=== PATIENT | female | born 1940 | race Caucasian/White ===

== ENCOUNTER 2023-10-19 19:42 | Emergency (ER) | payer MEDICARE, OTHER, SELFPAY ==
[2023-10-19 19:44] VITALS: BP 168/114
[2023-10-19 20:18] LABS: % Basophils 0.5 % (0-2); % Eosinophils 1.2 % (0-6); % Immature Granulocytes 0.3 % (0-0.5); % Lymphocytes 22.5 % (20.5-51.1); % Monocytes 8.3 % (1.7-9.3); % Neutrophils 67.2 % (42.2-75.2); Absolute Basophils 0.1 10^3/uL (0-0.2); Absolute Eosinophils 0.1 10^3/uL (0-0.7); Absolute Lymphocytes 2.5 10^3/uL (1.2-3.4); Absolute Monocytes 0.9 10^3/uL (0.1-0.6); Absolute Neutrophils 7.6 10^3/uL (1.4-6.5); Hemoglobin 13.9 g/dL (12.0-16.0); Mean Corp Hgb Conc. 33.9 g/dL (33.0-37.0); Mean Corpuscular Hgb 30.4 pg (27.0-31.0); Mean Corpuscular Volume 89.7 fL (81.0-99.0); Mean Platelet Volume 9.2 fL (7.4-10.4); Nucleated Red Blood Cells % 0 %; Platelet Count 303 10^3/uL (130-400); Red Blood Cell Count 4.57 10^6/uL (4.20-5.40); Red Cell Dist. Width 13.5 % (11.5-14.5); White Blood Cell Count 11.3 10^3/uL (4.8-10.8)
[2023-10-19 20:32] LABS: Lactic Acid 1.7 mmol/L (0.7-2.0)
[2023-10-19 20:35] LABS: ALT (SGPT) 18 U/L (0-35); AST (SGOT) 20 U/L (14-36); Albumin 4.2 g/dl (3.5-5.0); Alkaline Phosphatase 55 U/L (38-126); Blood Urea Nitrogen 16 mg/dl (7-17); Calcium 9.6 mg/dl (8.4-10.2); Carbon Dioxide 28 mmol/L (22-30); Chloride 98 mmol/L (98-107); Glucose 159 mg/dl (70-99); Potassium 3.8 mmol/L (3.5-5.1); Sodium 136 mmol/L (135-145); Total Bilirubin 0.5 mg/dl (0.2-1.3); Total Protein 7.4 g/dl (6.3-8.2); eGFR > 60.00
[2023-10-19 20:36] LABS: Lipase 62 U/L (23-300)
[2023-10-19 22:14] VITALS: BMI 27.0
[2023-10-19 22:17] VITALS: BP 139/67
[2023-10-19 22:19] VITALS: BP 139/67
--- NOTE | 2023-10-19 22:42 | ED.GENMED ---
Addendum entered and electronically signed by Stacy Serrano PA-C 10/22/23 07:11:
prelim gram neg bacilli urine culture; given monurol. await sensitivities
Original Note:
History of Present Illness
General
Chief Complaint: Abdominal Pain
Source: patient
Exam Limitations: none
Time Seen by Provider: 10/19/23 21:54
Travel History
Have you had any contact with someone who has COVID-19?: No
Do you have any symptoms of coronavirus? Fever > 100 degrees, chills, cough, shortness of breath, sore throat, loss of taste or smell, muscle aches, or headache?: No
History of Present Illness
History of Present Illness:
This is a 82 year old female that comes in with c/o lower abd pain. States that this started yesterday and has been constant. States that she has a clear mucous like rectal discharge. Family state that the patient normally has diarrhea and can go
about 5 times a day and is not going to the [place]. States that she is also nauseated. Denies any fever, chills, chest pain, SOB, vomiting, diarrhea, headache, dizziness, urinary burning.
Past History
Past History
ED Past Medical History: GERD, HTN, Hypercholesterolemia, NIDDM and Other (Diverticulitis, hiatal hernia, ovarian cyst with removal)
ED Past Surgical History: Appendectomy, Cholecystectomy, Gynecological (Ovarian cyst removed), Orthopedic (Right knee surgery, Bilateral shoulder surgery), Tonsilectomy (And adenoids) and Urological (Bladder lift)
Social History
Tobacco: Former smoker
Alcohol: None
Personal:
Living: alone
Family History
Family History: CAD
Review of Systems
Review of Systems
All Other Systems: ROS reviewed and negative except as documented in HPI and ROS
Constitutional: Reports no symptoms; Denies fever or chills
EENT: Reports no symptoms
Respiratory: Reports no symptoms; Denies cough or trouble breathing
Cardiac: Reports no symptoms; Denies chest pain
ABD/GI: Reports abdominal pain (Lower abd pain) and nausea; Denies vomiting or diarrhea
: Reports no symptoms; Denies dysuria, frequency or urgency
Musculoskeletal: Reports no symptoms
Skin: Reports no symptoms
Neurological: Reports no symptoms; Denies dizzy or headache
Psychiatric: Reports no symptoms
Phy Exam
General Physical Exam
General Presentation: no apparent distress
General age: appears stated age
General Skin: warm and dry
General Habitus: elderly
General Mental: alert
General Hydration: dry mucous membranes
ENT Exam
ENT Exam: TM's normal, pharynx normal and neck supple
Eye Exam
Eye Exam: EOMI
Cardiovascular Exam
Cardiovascular Exam: regular rate/rhythm, no edema and normal peripheral pulses
Pulmonary Exam
Pulmonary Exam: lungs clear, no respiratory distress, no rales, chest non tender, no crackles, no rhonchi, no wheezing and no cough
Gastrointestinal Exam
Gastrointestinal Exam: normal bowel sounds, soft, no organomegaly, no pulsatile mass, non distended and tender (Left and lower abd tenderness with palpation)
Musculoskeletal Exam
Musculoskeletal Exam: full ROM and no edema
Skin Exam
Skin Exam: normal color, warm/dry, no rash and no petechia
Psychiatric Exam
Psychiatric Exam: normal mood/affect
Course
Orders/Labs/Results
Orders:
Orders
10/19/23 19:59
Complete Blood Count/With Diff Urgent
Comprehensive Metabolic Panel Urgent
Lipase Urgent
Blood Culture Urgent
[place] Source: Blood/Venous
Specimen Description:
10/19/23 20:00
Lactic Acid Urgent
10/19/23 22:33
CT Abd/pelvis W Iv Cont Urgent
Comment:
Reason For Exam: Lower abd pain
0.9% Sodium Chloride 1000 ml [Nss] 1,000 ml IV BOLUS
10/19/23 23:58
Urinalysis Reflex To Culture Urgent
Date Specimen was Collected: 10/19/23
Time Specimen was Collected: 23:56
Urine Microscopic Reflex Cult Urgent
Urine Culture Urgent
[place] Source: U
Specimen Description:
Date Specimen was Collected: 10/19/23
Time Specimen was Collected: 23:56
10/20/23 00:43
Fosfomycin [Monurol] 3 gm PO ONCE ONE
Abnormal Lab Results
10/19/23 10/19/23
19:59 23:58
WBC 11.3 H 10^3/uL
(4.8-10.8)
Absolute Neuts (auto) 7.6 H 10^3/uL
(1.4-6.5)
Absolute Monos (auto) 0.9 H 10^3/uL
(0.1-0.6)
Glucose 159 H mg/dl
(70-99)
Leukocyte Esterase Rfl 2+ A
(Negative)
Urine WBC (Reflex) >100 A /HPF
(0-5)
Urine Bacteria (Reflex) Many A
(Negative)
10/19/23 19:59
10/19/23 19:59
WBC slightly elevated. Glucose nonfasting. Lactic acid normal, Lipase normal at 62
Vital Signs
Initial and Last Documented VS:
Initial Vital Signs
Temp Pulse Resp BP Pulse Ox
97.8 F 113 20 168/114 98
10/19/23 19:44 10/19/23 19:44 10/19/23 19:44 10/19/23 19:44 10/19/23 19:44
Last Documented Vital Signs
Temp Pulse Resp BP Pulse Ox
97.8 F 79 20 139/67 96
10/19/23 19:44 10/19/23 22:19 10/19/23 19:44 10/19/23 22:19 10/19/23 22:19
MDM/Problems Addressed
Differential Diagnosis Includes:
Diverticulitis , Colitis, UTI
MDM/Problems Addressed:
This is a 82 year old female that comes in with c/o lower abd pain. States that this started yesterday and has been constant. States that she has a clear rectal discharge.
Will get labs and CT scan.
Back into see patient. Reviewed CT findings. Explained that she has a UTI. Patient will be given Monurol here and encouraged to increase her water intake. Patient to return with increased or changing abd pain, fever, or any other concerns.
Chronic conditions affecting care: Other (Diverticulitis)
Acute Exacerbation and/or Progression of Chronic Illness: Other (Diverticulitis)
*Radiology
Radiology exam reviewed: radiology read reviewed (CT- No acute abnormalities seen. Mild stool in the colon but no evidence for obstruction. Diverticulosis without evidence of diverticulitis. Mild dilation of the bile ducts likely due to prior
Cholecystectomy. Cysts in the kidneys bilaterally probable parapelvic cysts. No renal or obstructing ) and all reviewed NAD by ED Provider (CT cont- Ureteral stones. No hydronephrosis or hydroureter. Bilateral small inguinal hernias containing fat
but no bowel. Appendix is not visualized. No inflammation in the pericecal region. Mild to moderate artherosclerosis. )
*Pulse Oximetry
Patient hypoxic: no
*EKG
Interpreted by ED Provider?: NA
Rate: EKG- N/A
*Compressor Battery Pellets Interpretation
Rate: Compressor Battery Pellets- N/A
*Critical Care Note
Total Time (30-74mins, 75-104mins- exclusive of procedures): Not Applicable
ED Attending Note
-
Portions of this chart may have been created with voice recognition software.� Occasional wrong word or��sound alike� substitutions may have occurred due to the inherent limitations of voice recognition software.
Discharge Plan
Departure
Patient Disposition: Home (Routine Discharge)
Date of Disposition: 10/20/23
Time of Disposition: 00:48
Patient with high blood pressure during this ER visit?: Yes
Condition: Good
Covid-19: Not Applicable
Discharge Problem:
Urinary tract infection
Instructions: Urinary Tract Infection, Adult (DC), BLOOD PRESSURE
Prescriptions:
No Action
amlodipine 5 MG tablet
5 mg PO DAILY
omeprazole 20 MG capsule,delayed release(DR/EC)
20 mg PO BID
magnesium oxide 400 MG tablet
620 mg PO DAILY
metformin 500 mg Tablet
500 mg PO DAILY
spironolactone 25 mg Tablet
25 mg PO DAILYPRN PRN (Reason: swelling)
sertraline [Zoloft] 50 mg Tablet
50 mg PO DAILY
ezetimibe 10 mg Tablet
10 mg PO DAILY
Referrals:
Sylwia Ortega DO [Family Provider] - Call in 1-3 days for appt
Activity Restrictions/Additional Instructions:
As discussed, your blood work show a slight elevation of the white blood cell count. Your CT is negative for any acute process, there is no inflammation, obstruction of the bowel or renal obstruction and there is only mild stool in the colon. Please
increase your water intake to 8-8oz glasses daily. You have been given your antibiotic here and this a one time medication to treat the Urinary tract infection. Please follow up with the family doctor in 2-3 weeks for repeat urine. IF YOU HAVE
INCREASED OR CHANGING PAIN, FEVER, OR YOU HAVE ANY OTHER CONCERNS PLEASE RETURN TO THE EMERGENCY ROOM.
Interventions
Interventions:
*Risk Screen - Suicide Last Done: 10/19/23 19:44
*General Assessment Last Done: 10/19/23 19:44
*Neglect/Abuse Screening Last Done: 10/19/23 19:44
*ED COVID-19 Vaccine History Last Done: 10/19/23 22:19
[id number]-[id number] Assessment Last Done: 10/19/23 23:26
[2023-10-19] MEDS: NSS 1000 IV (22:55)
[2023-10-19 23:00] VITALS: BP 148/70
[2023-10-20 00:05] LABS: Urine Albumin Negative (Neg - Trace); Urine Bilirubin Negative (Negative); Urine Character Clear (Clear); Urine Color Yellow; Urine Glucose Negative (Negative); Urine Ketone Negative (Negative); Urine Leukocyte 2+ (Negative); Urine Nitrite Negative (Negative); Urine Occult Blood Negative (Negative); Urine Specific Gravity 1.005 (<1.030); Urine Urobilinogen Negative (Neg - 1+)
[2023-10-20 00:38] LABS: Urine Bacteria Many (Negative)
[2023-10-20 00:39] LABS: Urine Red Blood Cell 0-2 /HPF (0-2); Urine Squamous Cell >30 /LPF (Few); Urine White Cell >100 /HPF (0-5)
[2023-10-20] MEDS: MONUROL 3 GM PO (00:55)
[2023-10-20 00:59] VITALS: BP 144/66
== END 2023-10-20 01:11 | disposition home or self-care (01) ==
LOC: EMR 19:42
PROVIDERS: Clinical Nurse Specialist Family Health; EMERGENCY PHYSICIAN Emergency Medicine; FAMILY PHYSICIAN Family Medicine
DX: N39.0 Urinary tract infection, site not specified (principal); I10 Essential (primary) hypertension; Z87.891 Personal history of nicotine dependence
CPT/HCPCS: 99285; 96360; 74177; 80053; 81003; 81015; 83605; 83690; 85025; 87040; 87077; 87086; 87186; Q9967

== ENCOUNTER → 2024-09-06 13:32 | Outpatient (REF) | payer MEDICARE, OTHER, SELFPAY | LOC: HWRAD 13:32 | PROVIDERS: ATTENDING PHYSICIAN Family Medicine | DX: M54.16 Radiculopathy, lumbar region (principal); M54.12 Radiculopathy, cervical region | CPT/HCPCS: 72050; 72110 ==